=== PATIENT | male | born 1970 | race Caucasian/White ===

== ENCOUNTER 2020-03-04 13:26 | Emergency (ER) | payer OTHER ==
[~2020-03-04] VITALS: Ht 182.9 cm; Wt 106.6 kg
[2020-03-04] MEDS ORDERED: Percocet 5-3251 EACH PO (15:26)
[2020-03-04] MEDS ORDERED: Crutch1 EACH MISC (15:26)
[2020-03-04 15:52] LABS: BASOPHILS ABSOLUTE AUTO 0.08 K/mm3 (0.00-0.23); BASOPHILS PERCENT AUTO 1 % (0-2); EOSINOPHILS ABSOLUTE AUTO 0.02 K/mm3 (0.00-0.68); EOSINOPHILS PERCENT AUTO 0 % (0-6); Hematocrit 44.6 % (37.0-53.0); IMMATURE GRAN ABSOLUTE AUTO 0.13 K/mm3 (0.00-0.10); IMMATURE GRAN PERCENT AUTO 1 % (0-1); LYMPHOCYTES ABSOLUTE AUTO 0.91 K/mm3 (0.84-5.20); LYMPHOCYTES PERCENT AUTO 7 % (21-46); MONOCYTES ABSOLUTE AUTO 0.73 K/mm3 (0.16-1.47); MONOCYTES PERCENT AUTO 6 % (4-13); Mean Corpuscular HGB 30.9 pg (26.0-34.0); Mean Corpuscular HGB Conc 33.6 g/dL (31.5-36.5); Mean Corpuscular Volume 92 fL (80-100); Mean Platelet Volume 10.1 fL (9.1-12.4); NEUTROPHILS ABSOLUTE AUTO 11.46 K/mm3 (1.96-9.15); NEUTROPHILS PERCENT AUTO 86 % (41-73); Platelet Count 204 K/mm3 (150-400); RDW Coefficient Variation 12.2 % (11.7-14.2); RDW Standard Deviation 41.4 fL (35.1-46.3); Red Blood Cell Count 4.86 M/mm3 (4.30-5.90); White Blood Cell Count 13.33 K/mm3 (4.00-11.30)
[2020-03-04 16:16] LABS: Alanine Aminotransfer (ALT/SGP 34 U/L (12-78); Albumin, Blood 3.7 g/dL (3.4-5.0); Albumin/Globulin Ratio 0.9 (0.8-1.8); Alk Phos 74 U/L (50-136); Anion Gap 4 mmol/L (6-16); Aspartate Aminotrans (AST/SGOT 16 U/L (12-37); Bilirubin, Total 0.4 mg/dL (0.1-1.0); Blood Urea Nitrogen 18 mg/dL (8-24); Bun/Creatinine Ratio 24.4 (12.0-20.0); CO2, Blood 25 mmol/L (21-32); Calcium, Blood 9.3 mg/dL (8.5-10.1); Chloride, Blood 110 mmol/L (98-108); Creatinine, Blood 0.74 mg/dL (0.60-1.20); Glomerular Filtration Rate >60 (60-); Glucose, Blood 118 mg/dL (70-99); Potassium, Blood 4.6 mmol/L (3.5-5.5); Sodium, Blood 139 mmol/L (136-145); Total Protein, Blood 7.7 g/dL (6.4-8.2)
== END 2020-03-04 17:00 | disposition home or self-care (01) ==
LOC: ER 13:26
PROVIDERS: Physician Assistant
DX: S82.851A Displaced trimalleolar fracture of right lower leg, initial encounter for closed fracture (principal); X50.1XXA Overexertion from prolonged static or awkward postures, initial encounter; Y93.01 Activity, walking, marching and hiking; Y92.828 Other wilderness area as the place of occurrence of the external cause
CPT/HCPCS: 27818; 70450; 73030; 73600; 73610; 80053; 85025; 96361-59; 96374-59; 96375-59; 99152; 99284-25; J1170; J2405; J2704; J7030

== ENCOUNTER 2020-03-09 12:45 | Day surgery (SDC) | payer OTHER ==
[~2020-03-09] VITALS: Ht 182.9 cm; Wt 105.7 kg
[~2020-03-09 12:45] MED LIST: Crutch1 EACH MISC; Percocet 5-3251 EACH PO
[2020-03-09] MEDS ORDERED: ACET500 PO (13:29)
[2020-03-09] MEDS ORDERED: IBUP200 PO (13:29)
--- NOTE | 2020-03-09 16:38 | NUR ---
03/09/20 1638 Geraldine Yuan PT. WITH GOOD CMS TO RIGHT TOES.
== END 2020-03-09 18:30 | disposition home or self-care (01) ==
LOC: ORSCSDS 12:45
PROVIDERS: Podiatrist Foot & Ankle Surgery
PROC: 0QSJ04Z Reposition Right Fibula with Internal Fixation Device, Open Approach (ICD-10-PCS; principal; 2020-03-09 14:15)
PROC: 0QSG04Z Reposition Right Tibia with Internal Fixation Device, Open Approach (ICD-10-PCS; principal; 2020-03-09 14:15)
DX: S82.851A Displaced trimalleolar fracture of right lower leg, initial encounter for closed fracture (principal)
CPT/HCPCS: C1713; J0171; J0690; J1100; J2250; J2405; J2704; J3010; J7120

== ENCOUNTER 2020-09-03 08:38 | Emergency (ER) | payer OTHER ==
[~2020-09-03] VITALS: Ht 185.4 cm; Wt 108.9 kg
[~2020-09-03 08:38] MED LIST changes: +ACET500 PO; +IBUP200 PO
[2020-09-03 10:36] LABS: BASOPHILS ABSOLUTE AUTO 0.01 K/mm3 (0.00-0.23); BASOPHILS PERCENT AUTO 0 % (0-2); EOSINOPHILS PERCENT AUTO 0 % (0-6); Hematocrit 42.8 % (37.0-53.0); Hemoglobin 14.6 g/dL (13.5-17.5); IMMATURE GRAN ABSOLUTE AUTO 0.04 K/mm3 (0.00-0.10); IMMATURE GRAN PERCENT AUTO 1 % (0-1); LYMPHOCYTES ABSOLUTE AUTO 0.52 K/mm3 (0.84-5.20); LYMPHOCYTES PERCENT AUTO 7 % (21-46); MONOCYTES ABSOLUTE AUTO 0.52 K/mm3 (0.16-1.47); MONOCYTES PERCENT AUTO 7 % (4-13); Mean Corpuscular HGB 30.1 pg (26.0-34.0); Mean Corpuscular HGB Conc 34.1 g/dL (31.5-36.5); Mean Corpuscular Volume 88 fL (80-100); Mean Platelet Volume 9.5 fL (9.1-12.4); NEUTROPHILS ABSOLUTE AUTO 6.59 K/mm3 (1.96-9.15); NEUTROPHILS PERCENT AUTO 86 % (41-73); Platelet Count 191 K/mm3 (150-400); RDW Standard Deviation 38.8 fL (35.1-46.3); Red Blood Cell Count 4.85 M/mm3 (4.30-5.90); White Blood Cell Count 7.68 K/mm3 (4.00-11.30)
[2020-09-03 10:57] LABS: Alanine Aminotransfer (ALT/SGP 51 U/L (12-78); Albumin, Blood 3.1 g/dL (3.4-5.0); Albumin/Globulin Ratio 0.8 (0.8-1.8); Alk Phos 70 U/L (50-136); Anion Gap 4 mmol/L (6-16); Aspartate Aminotrans (AST/SGOT 45 U/L (12-37); Bilirubin, Total 0.5 mg/dL (0.1-1.0); Blood Urea Nitrogen 12 mg/dL (8-24); Bun/Creatinine Ratio 13.7 (12.0-20.0); CO2, Blood 29 mmol/L (21-32); Calcium, Blood 8.4 mg/dL (8.5-10.1); Chloride, Blood 101 mmol/L (98-108); Creatinine, Blood 0.88 mg/dL (0.60-1.20); Glomerular Filtration Rate >60 (60-); Glucose, Blood 113 mg/dL (70-99); Sodium, Blood 134 mmol/L (136-145); Total Protein, Blood 7.1 g/dL (6.4-8.2); Troponin I <0.015 ng/mL (0.000-0.040)
[2020-09-03] MEDS ORDERED: ONDA4ODT MM (11:35)
== END 2020-09-03 12:00 | disposition home or self-care (01) ==
LOC: ER 08:38
PROVIDERS: Emergency Medicine
DX: R55 Syncope and collapse (principal); E86.0 Dehydration
CPT/HCPCS: 36415; 71045; 80053; 84484; 85025; 93005; 93010; 96360; 99284-25; J7030

== ENCOUNTER 2020-09-07 09:22 | Inpatient (IN) | payer OTHER ==
[~2020-09-07] VITALS: Ht 185.4 cm; Wt 112.2 kg
[~2020-09-07 09:22] MED LIST changes: +ONDA4ODT MM
[2020-09-07 10:12] LABS: BASOPHILS ABSOLUTE AUTO 0.04 K/mm3 (0.00-0.23); BASOPHILS PERCENT AUTO 0 % (0-2); EOSINOPHILS ABSOLUTE AUTO 0.02 K/mm3 (0.00-0.68); EOSINOPHILS PERCENT AUTO 0 % (0-6); Hematocrit 39.8 % (37.0-53.0); Hemoglobin 13.5 g/dL (13.5-17.5); IMMATURE GRAN ABSOLUTE AUTO 0.26 K/mm3 (0.00-0.10); IMMATURE GRAN PERCENT AUTO 2 % (0-1); LYMPHOCYTES ABSOLUTE AUTO 0.48 K/mm3 (0.84-5.20); LYMPHOCYTES PERCENT AUTO 4 % (21-46); MONOCYTES ABSOLUTE AUTO 0.79 K/mm3 (0.16-1.47); MONOCYTES PERCENT AUTO 7 % (4-13); Mean Corpuscular HGB 29.9 pg (26.0-34.0); Mean Corpuscular HGB Conc 33.9 g/dL (31.5-36.5); Mean Corpuscular Volume 88 fL (80-100); Mean Platelet Volume 9.3 fL (9.1-12.4); NEUTROPHILS ABSOLUTE AUTO 9.87 K/mm3 (1.96-9.15); NEUTROPHILS PERCENT AUTO 86 % (41-73); Platelet Count 414 K/mm3 (150-400); RDW Coefficient Variation 12.1 % (11.7-14.2); RDW Standard Deviation 39.2 fL (35.1-46.3); Red Blood Cell Count 4.52 M/mm3 (4.30-5.90); White Blood Cell Count 11.46 K/mm3 (4.00-11.30)
[2020-09-07 10:31] LABS: Alanine Aminotransfer (ALT/SGP 135 U/L (12-78); Albumin, Blood 2.3 g/dL (3.4-5.0); Albumin/Globulin Ratio 0.5 (0.8-1.8); Alk Phos 127 U/L (50-136); Anion Gap 3 mmol/L (6-16); Aspartate Aminotrans (AST/SGOT 72 U/L (12-37); Bilirubin, Total 0.9 mg/dL (0.1-1.0); Blood Urea Nitrogen 12 mg/dL (8-24); Bun/Creatinine Ratio 14.8 (12.0-20.0); CO2, Blood 31 mmol/L (21-32); Calcium, Blood 8.4 mg/dL (8.5-10.1); Chloride, Blood 101 mmol/L (98-108); Creatinine, Blood 0.81 mg/dL (0.60-1.20); Globulin, Blood 4.6 g/dL (2.2-4.0); Glomerular Filtration Rate >60 (60-); Glucose, Blood 178 mg/dL (70-99); Potassium, Blood 3.6 mmol/L (3.5-5.5); Sodium, Blood 135 mmol/L (136-145); Total Protein, Blood 6.9 g/dL (6.4-8.2)
--- NOTE | 2020-09-07 17:00 | NUR ---
NEW ER ADMIT. PT ARRIVE TO VIA W/C APPROX 1420. TRANSFER TO BED SBA. HE IS A/O X4. STATE TESTED COVID19+ 08/29/20. STATE WORSENING FATIGUE & SOB BRING HIM TO HOSP. STATE SOB INCREASES w COUGH. ER GAVE 1ST DOSE IV REMDESIVIR & PO DECADRON. ON ARRIVAL TO [place] [id number] GAVE GUIF/CODEINE & TESSALON COUGH MEDS, STRT NS @ 75 ML/HR. TYLENOL FOR MILD H/A. LUNGS SEEM CLEAR HOWEVER PT COUGHS w DEEP INSPIRATIONS, BIOX 91-92% 5L. RT IN TO PLACE CONT BIOX. FLUIDS & SNACK PROVIDED. PT STATE HX NO SENSE OF SMELL, STATE DECREASED APPETITE TODAY. VSS. WBC 11.5, LACTIC ACID 1.9--STABLE. COVID[address] PT ORIENTED TO & CALL SYSTEM.
--- NOTE | 2020-09-08 05:13 | NUR ---
SUMMARY PT DENIES SOB BUT REQUIRED INCREASED O2. PT IS NOW ON AIRVO @ 40 LPM. PT HAS BEEN RESTING WELL T/O SHIFT. PT SPO2 IS CURRENTLY >90%. PT SLEEPING AND IN NO DISTRESS. CALL LIGHT IN REACH.
[2020-09-08 05:34] LABS: Hematocrit 36.7 % (37.0-53.0); Hemoglobin 12.5 g/dL (13.5-17.5); Mean Corpuscular HGB Conc 34.1 g/dL (31.5-36.5); Mean Corpuscular Volume 88 fL (80-100); Mean Platelet Volume 9.6 fL (9.1-12.4); Platelet Count 449 K/mm3 (150-400); RDW Coefficient Variation 12.2 % (11.7-14.2); RDW Standard Deviation 39.7 fL (35.1-46.3); Red Blood Cell Count 4.16 M/mm3 (4.30-5.90); White Blood Cell Count 12.31 K/mm3 (4.00-11.30)
[2020-09-08 05:59] LABS: Alanine Aminotransfer (ALT/SGP 105 U/L (12-78); Albumin, Blood 1.9 g/dL (3.4-5.0); Albumin/Globulin Ratio 0.4 (0.8-1.8); Alk Phos 110 U/L (50-136); Anion Gap 5 mmol/L (6-16); Aspartate Aminotrans (AST/SGOT 37 U/L (12-37); Bilirubin, Total 0.7 mg/dL (0.1-1.0); Blood Urea Nitrogen 12 mg/dL (8-24); Bun/Creatinine Ratio 17.6 (12.0-20.0); CO2, Blood 29 mmol/L (21-32); Calcium, Blood 8.5 mg/dL (8.5-10.1); Chloride, Blood 105 mmol/L (98-108); Creatinine, Blood 0.68 mg/dL (0.60-1.20); Globulin, Blood 4.3 g/dL (2.2-4.0); Glomerular Filtration Rate >60 (60-); Glucose, Blood 134 mg/dL (70-99); Potassium, Blood 3.8 mmol/L (3.5-5.5); Sodium, Blood 139 mmol/L (136-145); Total Protein, Blood 6.2 g/dL (6.4-8.2)
--- NOTE | 2020-09-08 17:24 | NUR ---
PT AOX4 AND COOPERATIVE OF CARE. PT IS AT STANDBY TO BEDSIDE COMMODE. NO DISTRESS NOTED. HOWEVER PT IS ON 55L AIRVO AND SAT AT 94%. DR TORRES IS AWARE AND HAS DISCUSSED WITH THIS ROLL HAND. PT AT THIS TIME IS BEING MONITORED VERY CLOSELY FOR ANY MORE DROPS IN O2 SATURATION. IF ANY ARE NOTED DR TORRES WILL BE NOTFIED IMMEDIATELY. PT DOING WELL CHANGING SIDES HE LAYS ON AND WILL LAY PRONE AT TIMES IF ASKED. WILL CONTINUE TO MONITOR.
--- NOTE | 2020-09-09 05:20 | NUR ---
SUMMARY NO ACUTE CHANGES. PT SPO2 >90%. PT REPORTS SOB W/ EXERTION. PT REMAINS ON AIRVO. PT CURRENTLY SLEEPING AND IN NO DISTRESS. CALL LIGHT IN REACH.
[2020-09-09 05:23] LABS: BASOPHILS ABSOLUTE AUTO 0.04 K/mm3 (0.00-0.23); BASOPHILS PERCENT AUTO 0 % (0-2); EOSINOPHILS PERCENT AUTO 0 % (0-6); Hematocrit 36.9 % (37.0-53.0); Hemoglobin 12.4 g/dL (13.5-17.5); IMMATURE GRAN ABSOLUTE AUTO 0.38 K/mm3 (0.00-0.10); IMMATURE GRAN PERCENT AUTO 3 % (0-1); LYMPHOCYTES PERCENT AUTO 5 % (21-46); MONOCYTES ABSOLUTE AUTO 1.18 K/mm3 (0.16-1.47); MONOCYTES PERCENT AUTO 8 % (4-13); Mean Corpuscular HGB 29.7 pg (26.0-34.0); Mean Corpuscular HGB Conc 33.6 g/dL (31.5-36.5); Mean Corpuscular Volume 89 fL (80-100); Mean Platelet Volume 9.6 fL (9.1-12.4); NEUTROPHILS ABSOLUTE AUTO 12.96 K/mm3 (1.96-9.15); NEUTROPHILS PERCENT AUTO 84 % (41-73); Platelet Count 503 K/mm3 (150-400); RDW Coefficient Variation 12.4 % (11.7-14.2); RDW Standard Deviation 40.1 fL (35.1-46.3); Red Blood Cell Count 4.17 M/mm3 (4.30-5.90); White Blood Cell Count 15.36 K/mm3 (4.00-11.30)
[2020-09-09 05:52] LABS: Alanine Aminotransfer (ALT/SGP 88 U/L (12-78); Albumin/Globulin Ratio 0.5 (0.8-1.8); Alk Phos 96 U/L (50-136); Anion Gap 6 mmol/L (6-16); Aspartate Aminotrans (AST/SGOT 32 U/L (12-37); Bilirubin, Total 0.8 mg/dL (0.1-1.0); Blood Urea Nitrogen 18 mg/dL (8-24); Bun/Creatinine Ratio 25.2 (12.0-20.0); CO2, Blood 29 mmol/L (21-32); Calcium, Blood 8.3 mg/dL (8.5-10.1); Chloride, Blood 105 mmol/L (98-108); Creatinine, Blood 0.72 mg/dL (0.60-1.20); Globulin, Blood 4.2 g/dL (2.2-4.0); Glomerular Filtration Rate >60 (60-); Glucose, Blood 122 mg/dL (70-99); Potassium, Blood 3.9 mmol/L (3.5-5.5); Sodium, Blood 140 mmol/L (136-145); Total Protein, Blood 6.2 g/dL (6.4-8.2)
--- NOTE | 2020-09-09 17:19 | NUR ---
PT AOX4 AND COOPERATIVE OF CARE. PT HAS HAD NO ACUTE CHANGES TODAY. PT IS NEEDING LESS O2 WITH THE AIRVO AND IS DOWN TO 30. PT IS STILL DOING WELL LAYING ON DIFFERENT SIDES AND TURNING. PT CALLS APPRORIATELY AND IS PLEASANT TO WORK WITH. NO DISTRESS NOTED AT THIS TIME. COUGH TREATED PER EMAR AND PT HAS LOWER RIB PAIN DUE TO COUGHING AND WAS TREATED PER EMAR. WILL CONTINUE TO MONITOR.
[2020-09-10 05:27] LABS: Alanine Aminotransfer (ALT/SGP 92 U/L (12-78); Albumin/Globulin Ratio 0.5 (0.8-1.8); Alk Phos 93 U/L (50-136); Anion Gap 4 mmol/L (6-16); Aspartate Aminotrans (AST/SGOT 33 U/L (12-37); Bilirubin, Total 0.7 mg/dL (0.1-1.0); Blood Urea Nitrogen 19 mg/dL (8-24); Bun/Creatinine Ratio 26.6 (12.0-20.0); CO2, Blood 30 mmol/L (21-32); Calcium, Blood 8.1 mg/dL (8.5-10.1); Chloride, Blood 106 mmol/L (98-108); Creatinine, Blood 0.71 mg/dL (0.60-1.20); Globulin, Blood 4.1 g/dL (2.2-4.0); Glomerular Filtration Rate >60 (60-); Glucose, Blood 113 mg/dL (70-99); Potassium, Blood 4.1 mmol/L (3.5-5.5); Sodium, Blood 140 mmol/L (136-145); Total Protein, Blood 6.1 g/dL (6.4-8.2)
--- NOTE | 2020-09-10 05:56 | NUR ---
SUMMARY PT WAS COACHED BY RT TO TRY TO SLEEP ON SIDE AND PRONE TOLERATED. PT HAS BEEN SUCCESFUL AND SPO2 HAS REMAINED >90% FOR MOST OF SHIFT. PT DENIES SOB. PT HAS SLEPT WELL FOR MOST OF SHIFT. NO ACUTE ISSUES NOTED. CALL LIGHT IN REACH.
--- NOTE | 2020-09-10 16:29 | NUR ---
SHIFT SUMMARY PT UP TO CHAIR FOR LUNCH TODAY AND STAYED UP FOR A FEW HOURS. PT DESATED FROM THE EXERTION OF TRANSFERS TO THE HIGH 80S, BUT RECOVERS QUICKELY WITH REST. PT CURRENTLY ON THE AIRVO AT 50L AND TOLERATING WELL AT 93-95% WHEN AT REST. PT TOLERATED PRONING ONCE TODAY AND DID SO FOR APPROX 30 MINUTES. PT TREATED FOR PAIN ONCE THIS SHIFT. NO OTHER ACUTE CHANGES IN ASSESSMENT AT THIS TIME. VS REVIEWED & STABLE. PT RESTING IN BED ON HIS SIDE AT THIS TIME. CALL LIGHT IN REACH.
--- NOTE | 2020-09-11 04:38 | NUR ---
SHIFT SUMMARY- PT. A&O, PLEASANT AND COOPERATIVE WITH CARE. MEDICATED WITH COUGH MEDICINE 1X LAST NIGHT PER PT. REQUEST. APPEARED TO HAVE GOOD RELIEF. PT. RESTED QUIETLY IN BED DURING THE NIGHT, NO APPARENT DISTRESS NOTED. PT. HAD NO C/O PAIN OR DISCOMFORT T/O THE NIGHT. ON AIRVO 30L WITH CONT BIOX, SATS AT 90-91%. PT. CALLS APPROPRIATELY, VSS. CALL LIGHT WITHIN REACH AND SIDE RAILS UPX2. WILL CONT TO MONITOR.
[2020-09-11 05:23] LABS: Hematocrit 39.7 % (37.0-53.0); Hemoglobin 13.1 g/dL (13.5-17.5); Mean Corpuscular HGB 29.4 pg (26.0-34.0); Mean Corpuscular Volume 89 fL (80-100); Mean Platelet Volume 8.9 fL (9.1-12.4); Platelet Count 586 K/mm3 (150-400); RDW Coefficient Variation 12.3 % (11.7-14.2); RDW Standard Deviation 40.7 fL (35.1-46.3); Red Blood Cell Count 4.46 M/mm3 (4.30-5.90); White Blood Cell Count 13.81 K/mm3 (4.00-11.30)
[2020-09-11 05:45] LABS: Alanine Aminotransfer (ALT/SGP 109 U/L (12-78); Albumin/Globulin Ratio 0.5 (0.8-1.8); Alk Phos 92 U/L (50-136); Anion Gap 4 mmol/L (6-16); Aspartate Aminotrans (AST/SGOT 44 U/L (12-37); Bilirubin, Total 0.5 mg/dL (0.1-1.0); Blood Urea Nitrogen 19 mg/dL (8-24); Bun/Creatinine Ratio 26.9 (12.0-20.0); CO2, Blood 30 mmol/L (21-32); Calcium, Blood 8.2 mg/dL (8.5-10.1); Chloride, Blood 106 mmol/L (98-108); Creatinine, Blood 0.71 mg/dL (0.60-1.20); Globulin, Blood 4.1 g/dL (2.2-4.0); Glomerular Filtration Rate >60 (60-); Glucose, Blood 109 mg/dL (70-99); Potassium, Blood 4.3 mmol/L (3.5-5.5); Sodium, Blood 140 mmol/L (136-145); Total Protein, Blood 6.1 g/dL (6.4-8.2)
[2020-09-11 05:53] LABS: BAND PERCENT MAN 2 % (0-8); BASOPHILS PERCENT MAN 0 % (0-2); EOSINOPHILS PERCENT MAN 0 % (0-6); LYMPHOCYTES ABSOLUTE MAN 1.65 K/mm3 (0.84-5.20); LYMPHOCYTES PERCENT MAN 12 % (21-46); METAMYELOCYTE ABSOLUTE MAN 0.41 K/mm3 (0.00-0.00); METAMYELOCYTE PERCENT MAN 3 % (0-0); MONOCYTES ABSOLUTE MAN 1.24 K/mm3 (0.16-1.47); MONOCYTES PERCENT MAN 9 % (4-13); MYELOCYTE ABSOLUTE MAN 0.13 K/mm3 (0.00-0.00); MYELOCYTE PERCENT MAN 1 % (0-0); NEUTROPHILS ABSOLUTE MAN 10.35 K/mm3 (1.96-9.15); SEG NEUTROPHILS PERCENT MAN 73 % (41-73); TOTAL CELLS COUNTED 100
--- NOTE | 2020-09-11 16:15 | NUR ---
SHIFT SUMMARY PT TITRATED TODAY ON HIS AIRVO TO 45L AND 65%. MANAGED BY RT. PT TOLERATING THIS WELL. SATING AROUND 90-93% PT COMPLETED BED BATH TODAY WITH MINIMAL ASSISTANCE. DENIES SOB T/O SHIFT. PT TOELRATING SITTING UP IN CHAIR FOR SEVERAL HOURS TODAY. NO OTHER ACUTE CHANGES IN ASSESSMENT AT THIS TIME. VS REVIEWED. CALL LIGHT IN REACH. PT UPRIGHT IN CHAIR CURRENTLY ON LAPTOP. DENIES OTHER NEEDS AT THIS TIME.
--- NOTE | 2020-09-11 22:37 | NUR ---
ASSUMPTION OF CARE. AOX3, SITTING UP IN CHAIR WATCHING TV ON HIS LAPTOP. ON AIRVO RUNNING 45L, 65% O2. LUNG SOUNDS CLEAR T/O, COUGH IS A DRY HACKING COUGH. COUGH SYRUP GIVEN. OCCATIONAL RIB PAIN. NO CARDIAC SYMTPOMS. MILD SWELLING TO RIGHT ANKLE DUE TO ONLY INJURY. NO PAIN NOTED. DENIES ANY OTHER NEEDS. ON CONTINUOUS PULSE OX. RUNNING 90-92%. CALL LIGHT IS IN REACH.
[2020-09-12 06:13] LABS: Hematocrit 39.8 % (37.0-53.0); Hemoglobin 13.6 g/dL (13.5-17.5); Mean Corpuscular HGB 30.4 pg (26.0-34.0); Mean Corpuscular HGB Conc 34.2 g/dL (31.5-36.5); Mean Corpuscular Volume 89 fL (80-100); Mean Platelet Volume 9.6 fL (9.1-12.4); Platelet Count 628 K/mm3 (150-400); RDW Coefficient Variation 12.5 % (11.7-14.2); RDW Standard Deviation 40.3 fL (35.1-46.3); Red Blood Cell Count 4.47 M/mm3 (4.30-5.90); White Blood Cell Count 13.98 K/mm3 (4.00-11.30)
[2020-09-12 06:39] LABS: Alanine Aminotransfer (ALT/SGP 106 U/L (12-78); Albumin, Blood 2.2 g/dL (3.4-5.0); Albumin/Globulin Ratio 0.5 (0.8-1.8); Alk Phos 87 U/L (50-136); Anion Gap 5 mmol/L (6-16); Aspartate Aminotrans (AST/SGOT 33 U/L (12-37); Bilirubin, Total 0.3 mg/dL (0.1-1.0); Blood Urea Nitrogen 21 mg/dL (8-24); Bun/Creatinine Ratio 30.5 (12.0-20.0); CO2, Blood 29 mmol/L (21-32); Calcium, Blood 8.4 mg/dL (8.5-10.1); Chloride, Blood 104 mmol/L (98-108); Creatinine, Blood 0.69 mg/dL (0.60-1.20); Globulin, Blood 4.1 g/dL (2.2-4.0); Glomerular Filtration Rate >60 (60-); Glucose, Blood 110 mg/dL (70-99); Potassium, Blood 4.5 mmol/L (3.5-5.5); Sodium, Blood 138 mmol/L (136-145); Total Protein, Blood 6.3 g/dL (6.4-8.2)
--- NOTE | 2020-09-12 07:01 | NUR ---
SHIFT SUMMARY: AOX3, INDEPENDENT IN THE ROOM. ON AIRVO AT 45L 65% O2. LUNG SOUNDS ARE CLEAR, OCCATIONAL COUGH, NO PRODUCTION. DOES DESAT DURING TALKING OR EXERTION. RECOVERS QUICK. ENCOURAGED BREATHING EXERCISES. ON CONTINUOUS BIOX SATS HAVE AVERAGE ABOVE 90%. NO PAIN NOTED. MILD SWELLING TO RIGHT ANKLE DUE TO OLD INJURY. VS WNL, AFEBRILE. CALLS APPROPRIATLY. CALL LIGHT IN REACH.
[2020-09-12 07:10] LABS: BASOPHILS PERCENT MAN 0 % (0-2); EOSINOPHILS ABSOLUTE MAN 0.27 K/mm3 (0.00-0.68); EOSINOPHILS PERCENT MAN 2 % (0-6); LYMPHOCYTES ABSOLUTE MAN 1.67 K/mm3 (0.84-5.20); LYMPHOCYTES PERCENT MAN 12 % (21-46); MONOCYTES ABSOLUTE MAN 1.81 K/mm3 (0.16-1.47); MONOCYTES PERCENT MAN 13 % (4-13); MYELOCYTE ABSOLUTE MAN 0.41 K/mm3 (0.00-0.00); MYELOCYTE PERCENT MAN 3 % (0-0); NEUTROPHILS ABSOLUTE MAN 9.78 K/mm3 (1.96-9.15); SEG NEUTROPHILS PERCENT MAN 70 % (41-73); TOTAL CELLS COUNTED 100
--- NOTE | 2020-09-12 18:38 | NUR ---
SHIFT SUMMARY PT IS A&O, VERY PLEASANT AND INDEPENDENT IN AND TO [facility]. USING URINAL AT BS. PT REPORTS VOIDING WELL WITH URINE IMPROVING FROM ADMIT. PT ALSO REPORTED APPITITE IS RETURNING, ESPECIALLY WITH STEROIDS. CXR DONE IN TODAY; SHOWING IMPROVEMENT WELL. PT'S BIOX IMPROVING AND WILL ASK RT TO TURN DOWN TO 40 FROM 45. PT FEELING AND LOOKING BETTER. UP TO CHAIR FOR MEALS. NO C/O. CALL LT IN REACH. ABLE TO MAKE NEEDS KNOWN.
--- NOTE | 2020-09-12 22:02 | NUR ---
ASSUMPTION OF CARE. AOX3, INDEPENDENT IN THE ROOM. LUNG SOUNDS ARE CLEAR EXCEPT THE RIGHT MIDDLE AND LOWER LOBE IS COURSE. OCCATIONAL DRY COUGH. 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 WANTS TO HAVE HIS AIRVO TURNED DOWN AWAITING ON RT TO DO SO. DENIES ANY OTHER CHANGES AT THIS TIME. CALL LIGHT IS IN REACH.
--- NOTE | 2020-09-13 05:10 | NUR ---
SHIFT SUMMARY: AOX4, INDEPENDENT. COVID ISOLATION. LUNG SOUNDS ARE CLEAR EXCEPT SOME COURSE SOUNDS ON THE RIGHT. COUGH IS STILL NON-PRODUCTIVE. ON AIRVO AT 45L TURNED DOWN TO 30% PRESSURE. SATS HAVE AVERAGED 92-94%. WHEN UP HE TENDS TO DO BETTER. GIVEN INSPIROMETER. DOES EXERCISE WELL, HE DOES HAVE DROP IN SATS WHEN DOING IT BUT GOES RIGHT BACK UP WHEN DONE. VS SHOWED BP IN THE 90'S. ENCOURAGED FLUID INTAKE. ONLY USED COUGH MED ONCE LAST NIGHT.
[2020-09-13 05:27] LABS: Hematocrit 41.7 % (37.0-53.0); Mean Corpuscular HGB 29.5 pg (26.0-34.0); Mean Corpuscular HGB Conc 33.6 g/dL (31.5-36.5); Mean Corpuscular Volume 88 fL (80-100); Mean Platelet Volume 9.2 fL (9.1-12.4); Platelet Count 570 K/mm3 (150-400); RDW Coefficient Variation 12.3 % (11.7-14.2); RDW Standard Deviation 40.1 fL (35.1-46.3); Red Blood Cell Count 4.74 M/mm3 (4.30-5.90); White Blood Cell Count 14.28 K/mm3 (4.00-11.30)
[2020-09-13 05:52] LABS: Albumin, Blood 2.3 g/dL (3.4-5.0); Anion Gap 6 mmol/L (6-16); Blood Urea Nitrogen 22 mg/dL (8-24); Bun/Creatinine Ratio 29.6 (12.0-20.0); CO2, Blood 29 mmol/L (21-32); Calcium, Blood 8.5 mg/dL (8.5-10.1); Chloride, Blood 103 mmol/L (98-108); Creatinine, Blood 0.74 mg/dL (0.60-1.20); Glomerular Filtration Rate >60 (60-); Glucose, Blood 119 mg/dL (70-99); Phosphorus, Blood 3.8 mg/dL (2.5-4.9); Potassium, Blood 4.4 mmol/L (3.5-5.5); Sodium, Blood 138 mmol/L (136-145)
[2020-09-13 06:00] LABS: BASOPHILS PERCENT MAN 0 % (0-2); EOSINOPHILS PERCENT MAN 0 % (0-6); LYMPHOCYTES ABSOLUTE MAN 1.28 K/mm3 (0.84-5.20); LYMPHOCYTES PERCENT MAN 9 % (21-46); MONOCYTES ABSOLUTE MAN 0.42 K/mm3 (0.16-1.47); MONOCYTES PERCENT MAN 3 % (4-13); MYELOCYTE ABSOLUTE MAN 0.14 K/mm3 (0.00-0.00); MYELOCYTE PERCENT MAN 1 % (0-0); NEUTROPHILS ABSOLUTE MAN 12.42 K/mm3 (1.96-9.15); SEG NEUTROPHILS PERCENT MAN 87 % (41-73); TOTAL CELLS COUNTED 100
--- NOTE | 2020-09-13 16:40 | NUR ---
encouraged by o2 level while talking to her, spent considerabl time in rm talking to pt and reviewing case
--- NOTE | 2020-09-13 19:12 | NUR ---
a+o, dr john states he is doing better, showered today with just nc, still having trouble keeping 02 above 90 when talking or walking, on airvo, saline locked, call light in reach able to get up and move indpt in rm, report shared outside of room with noc nurse
--- NOTE | 2020-09-14 07:06 | NUR ---
SHIFT SUMMARY PATIENT ALERT AND ORIENTED. HAD NO COMPLAINTS OF PAIN OR SHORTNESS OF BREATH. WAS MEDICATED ONCE PER EMAR FOR COUGH. NO ACUTE ISSUES NOTED OVERNIGHT. IV PATENT AND FLUSHED. BED IN LOWEST POSITION WITH WHEELS LOCKED. CALL LIGHT WITHIN REACH. REPORT GIVEN TO ONCOMING RN.
--- NOTE | 2020-09-14 18:09 | NUR ---
a+o, no acute changes noted during shift, reports that pt is improving, 5L via nc, saline locked after abx infused, call light in reach, independant in rm pt planning on leaving soon checked with control r/how long isolated post dx, cooperative with care
--- NOTE | 2020-09-14 23:55 | NUR ---
194 PT SITTING IN CHAIR WHILE WORKING ON PERSONAL COMPUTER; O2 SATS ARE 90% ON ROOM AIR AFTER PT REMOVED O2 30 MINUTES PRIOR; DENIES SOB.
--- NOTE | 2020-09-15 03:51 | NUR ---
SHIFT SUMMARY: 50 Y/O MALE RESTED COMFORTABLY ALL SHIFT; DENIES PAIN OR NAUSEA; OCCASIONAL SOB VOICED, WEARING O2 AT 2L/M VIA NASAL CANNULA WITH SATS 92%; VOICE CLEAR AND AUDIBLE; LUNG SOUNDS CLEAR THROUGHOUT; NO COUGH; PT VOICED HE HAS NO SENSE OF SMELL PRESENTLY; BED LOW POSITION WITH CALL LIGHT AT SIDE; DROPLET ISOLATION MAINTAINED DUE TO COVID 19.
[2020-09-15] MEDS ORDERED: Acetaminophen325 M1 PO (09:45)
[2020-09-15] MEDS ORDERED: BENZ100A PO (09:45)
[2020-09-15] MEDS ORDERED: DEXA6 PO (09:46)
--- NOTE | 2020-09-15 16:14 | NUR ---
PT DISCHARGED FROM THE UNIT. IV REMOVED. MEDICATIONS REVIEWED, AND FAXED TO PHARMACY. DISCHARGE INSTRUCTIONS REVIEWED WITH PT. INSTRUCTED ON FOLLOW UP APT. PT LEFT UNIT VIA WHEELCHAIR AND WILL DRIVE HOME
== END 2020-09-15 13:52 | disposition home or self-care (01) | DRG 177 ==
LOC: ER 09:22 → MEDS 12:31
PROVIDERS: Emergency Medicine; Internal Medicine; Nurse Practitioner Acute Care; ADMIT Internal Medicine
PROC: XW033E5 Introduction of Remdesivir Anti-infective into Peripheral Vein, Percutaneous Approach, New Technology Group 5 (ICD-10-PCS; principal; 2020-09-07)
DX: U07.1 COVID-19 (principal); J12.82 Pneumonia due to coronavirus disease 2019; J96.01 Acute respiratory failure with hypoxia; E87.1 Hypo-osmolality and hyponatremia; E66.9 Obesity, unspecified; E86.0 Dehydration; D47.3 Essential (hemorrhagic) thrombocythemia
CPT/HCPCS: 36415; 71045; 80053; 80069; 83605; 84145; 85025; 85027; 93005; 93010; 94760; 94761; 94762; 96365; 99285-25; A9270; J1650; J7030

== ENCOUNTER 2020-11-20 07:44 | Day surgery (SDC) | payer OTHER ==
[~2020-11-20] VITALS: Ht 182.9 cm; Wt 106.8 kg
[~2020-11-20 07:44] MED LIST changes: +Acetaminophen325 M1 PO; +BENZ100A PO; +DEXA6 PO
--- NOTE | 2020-11-20 08:22 | NUR ---
Ambulatory in Day Surgery History, Chart, Medications and Allergies reviewed before start of procedure. Lungs clear T/O to Auscultation. Patient confirms NPO status and agrees with scheduled surgery. Patient States Post-Procedure ride home has been arranged.
--- NOTE | 2020-11-20 09:13 | NUR ---
11/20/20 0913 Ayan Burton History, Chart, Medications and Allergies reviewed before start of procedure. MONITOR INTACT WITH CONTINUOUS PULSE OXIMETRY AND INTERMITTENT BP. 3-LEAD EKG REVIEWED WITH PHYSICIAN PRIOR TO START OF PROCEDURE. O2 VIA N/C INTACT THROUGHOUT SEDATION/PROCEDURE. PATIENT DETERMINED TO BE ASA APPROPRIATE FOR PROPOFOL SEDATION PRIOR TO START OF PROCEDURE BY DR. WRIGHT.
--- NOTE | 2020-11-20 10:00 | NUR ---
Ambulatory in Day Surgery WITH STEADY GAIT. Discharge instructions reviewed with patient. Patient verbalizes understanding. Copy given to patient to take home. Patient States Post-Procedure ride home has been arranged WITH SON. Discharged via wheelchair to private car for ride home.
== END 2020-11-20 10:05 | disposition home or self-care (01) ==
LOC: ORSCMMR 07:44 → ORD 08:30 → ORSCMMR 10:05
PROVIDERS: Internal Medicine Gastroenterology
PROC: 0DBN8ZX Excision of Sigmoid Colon, Via Natural or Artificial Opening Endoscopic, Diagnostic (ICD-10-PCS; principal; 2020-11-20 08:30)
DX: Z12.11 Encounter for screening for malignant neoplasm of colon (principal); D12.5 Benign neoplasm of sigmoid colon
CPT/HCPCS: 88305; J2704; J7120